=== PATIENT | female | born 1995 | race Caucasian/White ===

== ENCOUNTER 2016-11-13 16:58 | Emergency (ER) | payer OTHER ==
[2016-11-13 17:35] VITALS: BP 154/71
--- NOTE | 2016-11-13 18:18 | Diag Imaging Result Document ---
PROCEDURE NAME: FOREARM-RIGHT - 11/13/2016 RIGHT FOREARM, 2 VIEWS: FINDINGS: No fracture. No dislocation. No foreign body. IMPRESSION: No acute bony injury.
[2016-11-13] MEDS ORDERED: ZOFRAN ODT PO ONE (18:40)
[2016-11-13] MEDS ORDERED: NORCO-7.5 PO ONE (18:40)
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
== END 2016-11-13 19:00 | disposition home or self-care (01) ==
LOC: P.ED 16:58
DX: S50.11XA Contusion of right forearm, initial encounter (principal); M79.631 Pain in right forearm; M79.1 Myalgia; M79.89 Other specified soft tissue disorders; V49.40XA Driver injured in collision with unspecified motor vehicles in traffic accident, initial encounter
CPT/HCPCS: 99283